=== PATIENT | male | born 1985 | race Hispanic/Latino ===

== ENCOUNTER 2023-08-16 08:05 | Emergency (ER) | payer BC, SELFPAY ==
--- NOTE | 2023-08-16 08:11 | ED.EYEPROB ---
HPI - Eye Problem General Chief complaint: Eye Problems Stated complaint: Right Eye Irritation Time Seen by Provider: 08/16/23 08:05 Source: patient Mode of arrival: ambulatory Limitations: no limitations History of Present Illness HPI Narrative: Patient is a 37-year-old male who presents with right eye hazy vision since Wednesday. Patient unsure if he got something in my. Reported pain and the feeling of something in his eye on Wednesday, but since has not had any pain. Patient also reports watering to eye constantly. Denies any photosensitivity currently, resolved on Wednesday. Related Data Allergies Allergy/AdvReac Type Severity Reaction Status Date / Time No Known Allergies Allergy Verified 08/16/23 08:14 Review of Systems Review of Systems: All systems reviewed & are unremarkable except as noted in HPI and below Constitutional: Constitutional: Denies body ache(s), Denies fever(s), Denies headache(s), Denies malaise and Denies weakness Eyes: Eyes: Reports blurry vision, Reports eye discharge, Denies irritation, Denies itchy eyes, Denies loss of vision and Denies eye pain ENT: Denies otalgia, Denies headache(s), Denies nasal discharge, Denies sinus pain and Denies sore throat Cardiovascular: Cardiovascular: Denies chest pain, Denies irregular heart rhythm and Denies dyspnea Respiratory: Respiratory: Denies dyspnea Gastrointestinal: Gastrointestinal: Denies abdominal pain, Denies diarrhea, Denies nausea and Denies vomiting Musculoskeletal: Musculoskeletal: Denies back pain, Denies myalgias and Denies arthralgias Integumentary/Breasts: Skin/Breast: Denies pruritus and Denies rash Neurologic: Denies headache(s), Denies loss of vision and Denies weakness Psychiatric: Psychiatric: Reports no additional psychiatric complaints Allergic/Immunologic: Allergic/Immunologic: Reports itchy eyes PMFSH Comments At time of signature, agree with nursing past medical, surgical, social and family history. There is no relevant family history pertinent to the presenting complaint. Exam Const: General: cooperative, healthy appearing, comfortable, no acute distress and well nourished Nutritional Appearance: well nourished Orientation/consciousness: patient oriented x3 Limitations: no limitations HENMT: Head: normal to inspection, normocephalic and atraumatic Ears: external ears normal Face/Nose/Sinus: Normal external nose present, normal facial exam and face symmetric Face and sinus: normal facial exam and face symmetric Mouth: Yes lip normal Eyes: General: appearance normal, both eyes and all related structures Visual Harley: normal visual harley by confrontation Alignment and Position: alignment normal and position normal Periorbital: periorbital findings normal Eyelids: eyelids normal Conjunctivae: conjunctivae normal Sclera: scleral abnormality right scleral injection diffuse Cornea: corneas abnormal on the right fluorescein used and abrasion punctate and at the following clock position (11); no contact lens present and with no foreign body noted and fluorescein used Pupils: Equal, round and reactive pupils present EOM: EOMs intact bilaterally Direct Ophthalmoscopy: no photophobia and No photophobia Other: No hyphema, no foreign body under the lids. Neck: Neck: normal visual inspection, full ROM, no lymphadenopathy and no meningeal signs Chest: Chest palpation & inspection: normal inspection of the chest Resp: Effort & Inspection: normal respiratory effort and able to speak in complete sentences Auscultation: clear to auscultation bilaterally Cardio: Rate: regular rate Rhythm: regular rhythm Heart sounds: S1 normal heart sound present and S2 normal heart sound present GI: Inspection: normal to inspection Skin: General skin exam: normal color and no rashes or lesions noted Neuro: General: patient oriented x3, moves all extremities and no meningeal signs Cranial nerves: Yes Equal, round and reactive pupils pre
[2023-08-16 08:19] VITALS: BP 129/82; PULSE 67; RESP 16; TEMP 36.8; O2SAT 99
[2023-08-16] MEDS: DACRIOSE EYE IRRIGATION 118 ML BOTTLE 50 ML RIGHT EYE (09:19)
[2023-08-16] MEDS: FLUORESCEIN SOD 1 MG/STRIP EACH EYE (09:19)
[2023-08-16] MEDS: TETRACAINE HCL 0.5% OPHTH SOLN 4 ML BTL 1 DROP EACH EYE (09:19)
== END 2023-08-16 08:45 | disposition home or self-care (01) ==
PROVIDERS: Emergency Provider Nurse Practitioner Family
DX: S05.01XA Injury of conjunctiva and corneal abrasion without foreign body, right eye, initial encounter (principal); X58.XXXA Exposure to other specified factors, initial encounter
CPT/HCPCS: 99213; A9270; G0463

== ENCOUNTER 2024-06-07 11:12 | Emergency (ER) | payer BC, SELFPAY ==
[2024-06-07] VITALS (8 sets, daily range): BP systolic 129–149; BP diastolic 73–99; PULSE 63–79; RESP 13–20; TEMP 36.5; O2SAT 96–100
--- NOTE | ~2024-06-07 | XR_ITS ---
EXAMINATION: XR chest 2V 06/07/2024 11:33 INDICATION: Chest pain PROCEDURE: 2 view chest COMPARISON: No prior studies for comparison. FINDINGS: The lungs are clear. The cardiomediastinal silhouette is within normal limits. There are no pleural effusions. There is no pneumothorax suspected. IMPRESSION: 1: NO ACUTE CARDIOPULMONARY DISEASE. Reviewed, dictated and finalized at location B.
--- NOTE | 2024-06-07 11:13 | ECG_ITS ---
Test Date: 2024-06-07 11:18:39 Measurements Intervals [place] Rate: 72 P: 2 FL: 147 QRS: 33 QRSD: 96 T: 50 QT: 396 QTc: 434 Interpretive Statements BASELINE ARTIFACT, REDUCED ECG QUALITY SINUS RHYTHM NONSPECIFIC ST ELEVATION [0.05+ mV ST ELEVATION], PROBABLY EARLY REPOLARIZATION BORDERLINE ECG No previous ECG available for comparison Electronically Signed On 06-08-2024 13:06:41 CDT by Gil Bunn M.D.
[2024-06-07 11:35] LABS: Basophils Percent Auto 0.4 % (0.2-1.2); Eosinophils Absolute Auto 0.1 K/mm3 (0-0.3); Eosinophils Percent Auto 0.7 % (0-4.4); Hematocrit 44.2 % (42.0-52.0); Hemoglobin 15.2 g/dL (14.0-18.0); Immature Granulocyte Absolute 0.02 K/mm3 (0.00-0.031); Immature Granulocyte Percent A 0.2 % (0-0.5); Lymphocytes Percent Auto 38.9 % (18.3-44.2); Mean Corpuscular HGB Conc 34.4 g/dl (32-36); Mean Corpuscular Hemoglobin 31.6 pg (26-34); Mean Corpuscular Volume 91.9 fl (80-100); Mean Platelet Volume 10.4 fl (7.4-10.4); Monocytes Absolute Auto 0.7 K/mm3 (0.1-0.6); Monocytes Percent Auto 7.4 % (2.6-8.5); Neutrophils Percent Auto 52.4 % (45.5-73.1); Platelet Count Result 204 k/mm3 (150-375); Red Blood Count 4.81 M/mm3 (4.6-6.20); Red Cell Distribution Width 11.8 % (11.5-14.5); White Blood Count 9.5 K/mm3 (4.5-10.0)
--- NOTE | 2024-06-07 11:42 | ED.CHESTPAIN ---
HPI - Chest Pain General Chief Complaint: Chest Pain Stated Complaint: chest pain Time Seen by Provider: 06/07/24 11:25 History of Present Illness HPI narrative: 38-year-old male presenting to the emergency department for evaluation of chest pain. Patient states approximately 1 hour prior to arrival he had onset of substernal chest pain. Patient denies any associated shortness of breath. Patient states when he takes a deep breath that the chest pain is sharper. Related Data Allergies Allergy/AdvReac Type Severity Reaction Status Date / Time No Known Allergies Allergy Verified 08/16/23 08:14 Review of Systems Review of Systems: All systems reviewed & are unremarkable except as noted in HPI and below Exam Narrative: APPEARANCE: Well appearing, no pain, no distress, well-nourished. HEAD: normocephalic, atraumatic. EYES: PERRLA/EOMI, conjunctivae clear. NOSE: Normal no drainage EARS:TMS clear with good light reflex. THROAT: Pharynx clear, no exudate. NECK: Supple. No adenopathy, no masses. RESPIRATORY: Airway patent, respirations nonlabored. Clear to auscultation bilaterally, no rales, rhonchi, wheezing. CARDIOVASCULAR: Reproducible left-sided chest wall tenderness ABDOMINAL: Soft, nontender, nondistended, normal bowel sounds MUSCULOSKELETAL: Moves all extremities. Strength/ROM intact, No edema, No calf tenderness. NEURO: Alert. Cranial nerves II through XII intact. Grossly intact SKIN: Warm, dry. Normal Color Course Course Emergency Course: Patient was discharged home with instruction have close follow-up with his primary care physician. Vital Signs Vital signs: Vital Signs Temperature 97.7 F 06/07/24 11:15 Pulse Rate 77 06/07/24 11:15 Respiratory Rate 13 06/07/24 11:15 Blood Pressure 149/99 H 06/07/24 11:15 Pulse Oximetry 96 06/07/24 11:15 Oxygen Delivery Room Air 06/07/24 11:15 Temperature 97.7 F 06/07/24 11:15 Pulse Rate 74 06/07/24 15:31 Respiratory Rate 20 06/07/24 15:31 Blood Pressure 145/73 H 06/07/24 15:31 Pulse Oximetry 98 06/07/24 15:31 Oxygen Delivery Room Air 06/07/24 11:15 MDM - Chest Pain MDM Narrative Medical decision making narrative: 38-year-old male presenting to the emergency department for evaluation chest wall pain. Patient is afebrile with no leukocytosis and a stable hemoglobin of 15.2. Patient had negative serial troponins and negative D-dimer. Patient had no acute abnormalities on his CMP chest x-ray shows no acute cardiopulmonary abnormality an EKG shows no evidence acute STEMI. Patient's plain is very pleuritic in nature and patient did feel improved with treatment. Differential Diagnosis Differential diagnosis: Likely pneumothorax, unstable angina pectoris, atypical chest pain, st elevation myocardial infarction, costochondritis, chest pain, biliary colic and other Lab Data Attestation: I reviewed the patient's lab results. 06/07/24 11:23 06/07/24 11:23 Labs: Lab Results 06/07/24 06/07/24 Range/Units 11:23 14:24 WBC 9.5 (4.5-10.0) K/mm3 RBC 4.81 (4.6-6.20) M/mm3 Hgb 15.2 (14.0-18.0) g/dL Hct 44.2 (42.0-52.0) % MCV 91.9 (80-100) fl MCH 31.6 (26-34) pg MCHC 34.4 (32-36) g/dl RDW 11.8 (11.5-14.5) % Plt Count 204 (150-375) k/mm3 MPV 10.4 (7.4-10.4) fl Immature Gran % (Auto) 0.2 (0-0.5) % Neut % (Auto) 52.4 (45.5-73.1) % Lymph % (Auto) 38.9 (18.3-44.2) % [place] % (Auto) 7.4 (2.6-8.5) % Eos % (Auto) 0.7 (0-4.4) % Baso % (Auto) 0.4 (0.2-1.2) % Lymph # (Auto) 3.70 H (0.9-3.2) K/mm3 [place] # (Auto) 0.7 H (0.1-0.6) K/mm3 Eos # (Auto) 0.1 (0-0.3) K/mm3 Baso # (Auto) 0.0 (0.0-0.1) K/mm3 Abs Immat Gran (auto) 0.02 (0.00-0.031) K/mm3 Absolute Neuts (auto) 5.0 (1.3-6.7) K/mm3 Absolute Nucleated RBC 0.000 (0.0-0.012) K/mm3 Nucleated RBC % 0.0 (0.0-0.2) % PT 12.8 (11.1-14.7) Seconds INR 0.9 APTT 26.5
[2024-06-07 11:48] LABS: Alanine Aminotransferase 70 U/L (6-50); Albumin Level 5.1 g/dL (3.5-5.1); Alkaline Phosphatase 62 U/L (38-126); Anion Gap 13 mmol/L (4-12); Aspartate Amino Transferase 63 U/L (17-59); Bilirubin,Total 0.9 mg/dL (0.2-1.3); Blood Urea Nitrogen 12 mg/dL (9-20); Carbon Dioxide 24 mmol/L (22-30); Chloride 102 mmol/L (98-107); Estimated CRCL calculation 97 ml/min; Estimated Glomerular Filt Rate > 60; Glucose 100 mg/dL (65-110); Lipase 71 U/L (23-300); Potassium 3.9 mmol/L (3.4-5.0); Sodium 139 mmol/L (137-145)
[2024-06-07 11:51] LABS: INR 0.9; Prothrombin Time 12.8 Seconds (11.1-14.7)
[2024-06-07 11:52] LABS: Partial Thromboplastin Time 26.5 Seconds (22.3-36.8)
[2024-06-07 11:55] LABS: D Dimer < 0.22 ug/mL (<0.48)
[2024-06-07 12:07] LABS: Troponin I < 0.012 ng/mL (0.000-0.034)
[2024-06-07] MEDS: ASPIRIN 81 MG CHEWABLE TABLET 324 MG PO (13:49)
[2024-06-07 14:50] LABS: Troponin I < 0.012 ng/mL (0.000-0.034)
== END 2024-06-07 16:07 | disposition home or self-care (01) ==
PROVIDERS: Emergency Provider Emergency Medicine
DX: R07.89 Other chest pain (principal); R94.31 Abnormal electrocardiogram [ECG] [EKG]
CPT/HCPCS: 36415; 71046; 80053; 83690; 84484; 85025; 85380; 85610; 85730; 93005; 99284; A9270